=== PATIENT | female | born 1990 | race Caucasian/White ===

== ENCOUNTER → 2020-03-27 | Outpatient (CLI) | payer OTHER | END | disposition home or self-care (01) | LOC: LABPAT 09:22 | PROVIDERS: ATTEND Obstetrics & Gynecology | DX: Z53.9 Procedure and treatment not carried out, unspecified reason (principal) ==

== ENCOUNTER → 2020-03-29 | Outpatient (CLI) | payer OTHER ==
[2020-03-29 08:28] LABS: Basophils % (A) 1 %; Eosinophils # (A) 0.2 k/uL (0-0.7); Eosinophils % (A) 3 %; HCT 40.5 % (34.0-46.0); Lymphocytes # (A) 1.6 k/uL (1.0-4.8); Lymphocytes % (A) 34 %; MCH 29.6 pg (25.0-35.0); MCHC 32.2 g/dL (31.0-37.0); Monocytes # (A) 0.3 k/uL (0-1.0); Monocytes % (A) 6 %; Neutrophils # (A) 2.6 k/uL (1.3-7.7); Neutrophils % (A) 55 %; Platelet Count 177 k/uL (150-450); RDW 12.4 % (11.5-15.5); WBC 4.8 k/uL (3.8-10.6)
== END | disposition home or self-care (01) ==
LOC: LABPAT 07:39
PROVIDERS: ATTEND Obstetrics & Gynecology
DX: Z01.818 Encounter for other preprocedural examination (principal); N94.6 Dysmenorrhea, unspecified
CPT/HCPCS: 36415; 85025

== ENCOUNTER 2020-04-09 07:33 | Day surgery (SDC) | payer OTHER ==
[2020-04-08 08:25] VITALS: BMI 24.0
[~2020-04-09 07:33] MED LIST: DEXAMETHASONE SOD PHOSPHATE 10 MG/ML 1 ML VIAL IV ONE; HYDROmorphone 0.5 MG/0.5 ML SYRINGE IVP PRN; LACTATED RINGERS 1,000 ML IV SCH; MIDAZOLAM 2 MG/2 ML VIAL IV PRN; ONDANSETRON 4 MG/2 ML VIAL IVP ONE; Pre Op ABX Message 1 EACH MISC MISCELLANE ONE; SCOPOLAMINE 1.5MG/72HR PATCH TRANSDERM ONE
[2020-04-09] MEDS ORDERED: ONDANSETRON 4 MG/2 ML VIAL ONE ×2 (07:46→09:57)
[2020-04-09] MEDS ORDERED: LIDOCAINE 1% (10MG/ML) FOR IV START INTRADERMA ONE (08:06)
[2020-04-09] MEDS ORDERED: MIDAZOLAM 2 MG/2 ML VIAL ONE (09:57)
[2020-04-09] MEDS ORDERED: SUCCINYLCHOLINE CHLORIDE 100 MG/5 ML SYR IV ONE (09:57)
[2020-04-09] MEDS ORDERED: PROPOFOL 10 MG/ML 20 ML VIAL IV ONE (09:57)
[2020-04-09] MEDS ORDERED: LIDOCAINE 1% INJ 10MG/ML (20 ML MDV) ONE (09:57)
[2020-04-09] MEDS ORDERED: fentaNYL (PF) 50 MCG/ML 2 ML AMP ONE (09:57)
[2020-04-09] MEDS ORDERED: KETOROLAC 30 MG/ML 1 ML VIAL ONE (09:57)
[2020-04-09] MEDS ORDERED: BUPIVACAINE (PF) 0.25% 30 ML VIAL SQ ONE (10:25)
[2020-04-09] MEDS ORDERED: LACTATED RINGERS 1,000 ML IV ONE (10:37)
--- NOTE | 2020-04-09 10:52 | P.OP ---
Date of Procedure: 04/09/20 Preoperative Diagnosis: Severe dysmenorrhea Postoperative Diagnosis: Posterior cul-de-sac and right sidewall endometriosis, 2 cm pedunculated fibroid. Procedure(s) Performed: Diagnostic laparoscopy, cautery pelvic endometriosis Anesthesia: LOU Surgeon: No Berger Estimated Blood Loss (ml): 5 IV fluids (ml): 500 Urine output (ml): 200 Pathology: none sent Condition: stable Disposition: PACU Operative Findings: A small foci of endometriosis was noted posterior to the uterus and the cul-de-sac on the right aspect. A second foci was noted on the patient's right held the sidewall. There is a 2 cm pedunculated fundal fibroid noted as well. Description of Procedure: Patient is brought to the operating room where a general anesthetic is administered without difficulty. She's placed in the dorsal lithotomy position. The abdomen, cervix and vagina are all prepped and draped in usual sterile fashion. The appropriate timeout is performed to assure proper patient and procedural identification. Urine hCG is negative. Examination under anesthesia reveals a small mobile uterus with negative adnexa bilaterally. The bladder is drained for approximate 200 mL of clear yellow urine. The weighted speculum was placed into the vagina and the anterior lip of the cervix is grasped with an Allis clamp. The acorn cannula is placed onto the surface of the cervix and the speculum is removed. Attention is now drawn to the abdomen. A small infraumbilical incision is made. The disposable varies needle is placed in the abdomen is insufflated under low filling pressures for approximately 3.5 L of CO2 gas. Veress needle was removed. The trochars placed under direct visualization. Scope was then placed in the entry is noted to be atraumatic. A second incision is made suprapubically and a second small trocar is placed under direct visualization, again entry is atraumatic. Patient is now placed in Trendelenburg position and the uterus is anteverted. Thorough inspection of the pelvis reveals a small foci of endometriosis in the posterior cul-de-sac. In addition there is a foci on the right lateral pelvic sidewall. Both areas are cauterized with electrocautery. The ovaries appear normal to inspection bilaterally. The tubes appear normal without distortion or adhesions. The anterior surface of the uterus does contain a 2 cm pedunculated fibroid. The remaining sidewalls, anter ior posterior cul-de-sac, pelvis and abdomen are within normal limits to inspection. The CO2 gas was allowed to diffuse. The incisions are inspected and noted to be hemostatically intact. The incisions are closed with 4-0 Monocryl in a subcuticular manner. Steri-Strips and Mastisol are applied to the wounds. Wounds are injected with quarter percent Marcaine plain to aid in postoperative analgesia, 5 mL per incision. Instrumentation is removed from the vagina. All sponge needle and enhancement counts are correct. Patient is brought back to recovery room in stable condition with a pulse of 80, blood pressure 112/68. Toradol is given prior to leaving the operative suite.
[2020-04-09 10:53] VITALS: TEMP 97
[2020-04-09 11:30] VITALS: RESP 16
[2020-04-09 11:56] VITALS: BP 114/72; PULSE 78
== END 2020-04-09 12:34 ==
LOC: OR 07:33
PROVIDERS: ATTEND Obstetrics & Gynecology
DX: N80.3 Endometriosis of pelvic peritoneum (principal); D25.9 Leiomyoma of uterus, unspecified; K21.9 Gastro-esophageal reflux disease without esophagitis; Z86.19 Personal history of other infectious and parasitic diseases; Z83.49 Family history of other endocrine, nutritional and metabolic diseases
CPT/HCPCS: 81025; 58662; J2250; J1100; J2405; J2001; J3010; J1885; J0330; J2704

== ENCOUNTER → 2021-03-04 | Outpatient (CLI) | payer OTHER | END | disposition home or self-care (01) | LOC: LABWHC1 07:17 | PROVIDERS: ATTEND Otolaryngology | DX: J30.89 Other allergic rhinitis (principal) | CPT/HCPCS: 36415 ==